=== PATIENT | male | born 1975 | race Two or more races ===

== ENCOUNTER 2021-01-29 17:37 | Emergency (ER) | payer OTHER ==
[~2021-01-29] VITALS: Ht 170.2 cm; Wt 70.8 kg
[2021-01-29] MEDS ORDERED: DICLOFENAC SODI75 MG PO (23:13)
[2021-02-19] MEDS ORDERED: ACETAMINOPHEN650 M2 (08:21)
== END 2021-01-29 23:30 | disposition home or self-care (01) ==
LOC: ER 17:37
DX: R10.84 Generalized abdominal pain (principal); M94.0 Chondrocostal junction syndrome [Tietze]

== ENCOUNTER 2021-04-12 10:51 | Emergency (ER) | payer OTHER ==
[~2021-04-12] VITALS: Ht 170.2 cm; Wt 70.8 kg
[~2021-04-12 10:51] MED LIST: ACETAMINOPHEN650 M2; DICLOFENAC SODI75 MG PO
[2021-04-12] MEDS ORDERED: ATORVASTATIN CA10 MG PO (11:24)
[2021-04-12] MEDS ORDERED: LOSARTAN POTASS25 MG PO (11:25)
[2021-04-12] MEDS ORDERED: STONEX PO (15:18)
[2021-04-12] MEDS ORDERED: SKELAGESIC PO (15:18)
== END 2021-04-12 15:29 ==
LOC: ER 10:51
DX: R10.84 Generalized abdominal pain (principal); I10 Essential (primary) hypertension

== ENCOUNTER 2021-06-13 08:10 | Outpatient (CLI) | payer OTHER ==
[~2021-06-13 08:10] MED LIST changes: +ATORVASTATIN CA10 MG PO; +LOSARTAN POTASS25 MG PO; +SKELAGESIC PO; +STONEX PO
== END 2021-06-13 08:18 | disposition home or self-care (01) ==
LOC: RX STUDY 08:10
PROVIDERS: ATTEND Internal Medicine Gastroenterology
DX: K59.00 Constipation, unspecified (principal); C18.9 Malignant neoplasm of colon, unspecified; K56.600 Partial intestinal obstruction, unspecified as to cause; K56.609 Unspecified intestinal obstruction, unspecified as to partial versus complete obstruction; C18.5 Malignant neoplasm of splenic flexure

== ENCOUNTER 2021-07-15 15:05 | Emergency (ER) | payer OTHER ==
[~2021-07-15] VITALS: Ht 170.2 cm; Wt 66.2 kg
== END 2021-07-16 00:36 | disposition home or self-care (01) ==
LOC: ER 15:05
DX: R10.2 Pelvic and perineal pain (principal); I10 Essential (primary) hypertension; K40.90 Unilateral inguinal hernia, without obstruction or gangrene, not specified as recurrent